=== PATIENT | female | born 1955 | race Asian ===

== ENCOUNTER 2019-03-17 09:32 | Day surgery (SDC) | payer BC ==
[2019-03-17] MEDS ORDERED: NACL 0.9% 500 ML 500 ML IV SCH (11:00)
[2019-03-17] MEDS ORDERED: ADRENALIN ONE (11:39)
[2019-03-17] MEDS ORDERED: ATROPINE 0.1% (CARDIAC) ONE (11:39)
[2019-03-17] MEDS ORDERED: NITROSTAT SL ONE (11:40)
[2019-03-17] MEDS ORDERED: VERSED ONE (13:03)
[2019-03-17] MEDS ORDERED: SUBLIMAZE ONE (13:04)
[2019-03-17] MEDS ORDERED: XYLOCAINE 1%/ EPI 1:100,000 INFILTRATI ONE (13:10)
[2019-03-17] MEDS ORDERED: BENADRYL ONE (13:14)
[2019-03-17 15:38] VITALS: BP 114/54
--- NOTE | 2019-03-21 10:45 | Electrophysiological Studies ---
PROCEDURE: Tilt table test. CLINICAL HISTORY: This is a 63-year-old female with a past medical history of recurrent syncope. DESCRIPTION OF PROCEDURE: The patient was brought to the procedure room in the postabsorptive state. She underwent passive head up tilt table testing with constant electrocardiogram and blood pressure monitoring. The tilt protocol used was a baseline tilt followed by sublingual nitroglycerin. The patient was tilted to 80 degrees in the erect position. During the procedure, the patient developed symptoms and subsequently lost consciousness. At this point, the patient was placed in the supine position. The baseline heart rate was 62 beats per minute with a baseline blood pressure of 147/90 mmHg. Upon initial erect position, the patient's heart rate was 77 beats per minute and the blood pressure is 140/88 mmHg. The patient was erect for 30 minutes without symptoms. The patient was given a sublingual nitroglycerin and within 3-5 minutes, her heart rate went to 98 beats per minute and her blood pressure decreased to 58/31 mmHg. The patient subsequently lost consciousness. COMPLICATIONS: None. ASSESSMENT: Positive head up tilt table test consistent with neurogenic syncope. PLAN: Avoid dehydration and follow up with primary schedule hanger. JOB# [id number] BRAN/BLAYNE
== END 2019-03-17 15:00 | disposition home or self-care (01) ==
LOC: CATHLABREC 09:32
PROVIDERS: ATTEND Internal Medicine Cardiovascular Disease
DX: R55 Syncope and collapse (principal); E78.2 Mixed hyperlipidemia; E78.00 Pure hypercholesterolemia, unspecified; Z79.899 Other long term (current) drug therapy; Z88.8 Allergy status to other drugs, medicaments and biological substances; Z79.82 Long term (current) use of aspirin
CPT/HCPCS: 33285; 93660; C1764; J1200; J2250; J3010; J7040; J0153; J0171; J0461